=== PATIENT | male | born 1970 | race Caucasian/White ===

== ENCOUNTER → 2017-09-15 | Outpatient (CLI) | payer OTHER ==
--- NOTE | 2017-09-15 13:47 | DIAGNOSTIC IMAGING REPORT ---
TWO VIEW CHEST CLINICAL HISTORY: Exertional dyspnea. FINDINGS: PA and lateral chest radiographs are obtained. No prior studies are available for comparison at the time of dictation. The PA view is degraded by apical lordotic positioning. The cardiomediastinal silhouette is unremarkable. The lungs and pleural spaces are clear. There is no pneumothorax. The bony thorax appears intact. IMPRESSION: No active disease in the chest. Electronically signed by: Patricio Knight M.D. 09/15/2017 1:45 PM Dictated Date/Time: 09/15/2017 1:45 PM
== END | disposition home or self-care (01) ==
LOC: C.RAD1850 13:21
PROVIDERS: ATTEND Family Medicine
DX: R06.02 Shortness of breath (principal)

== ENCOUNTER 2020-08-21 21:45 | Observation (INO) ==
[2020-08-21 22:18] LABS: Basophils # (auto) 0.02 K/uL (0-0.2); Basophils % (auto) 0.3 %; Eosinophils # (auto) 0.15 K/uL (0-0.5); Eosinophils % (auto) 2.1 %; Hematocrit (blood only) 37.5 % (42-52); Hemoglobin 13.2 g/dL (14.0-18.0); Immature Granulocytes # (auto) 0.01 K/uL (0.00-0.02); Immature Granulocytes % (auto) 0.1 %; Lymphocytes # (auto) 2.52 K/uL (1.2-3.4); Mean Corpuscular Hemoglobin 30.5 pg (25-34); Mean Corpuscular Hgb Conc 35.2 g/dL (32-36); Mean Corpuscular Volume 86.6 fL (80-100); Mean Platelet Volume 9.6 fL (7.4-10.4); Monocytes # (auto) 0.66 K/uL (0.11-0.59); Monocytes % (auto) 9.2 %; Neutrophils # (auto) 3.83 K/uL (1.4-6.5); Neutrophils % (auto) 53.3 %; Platelet Count 415 K/uL (130-400); RDW Coefficient of Variation 12.5 % (11.5-14.5); Red Blood Count 4.33 M/uL (4.7-6.1); White Blood Count 7.19 K/uL (4.8-10.8)
--- NOTE | 2020-08-21 22:21 | Emergency Department Note ---
Impression & Plan TIA (transient ischemic attack) ED Provider Note NAME: CHOCO TORRES AGE: 49 SEX: M : 1970 ARRIVES VIA: Ambulance INFORMANT: Patient, prehospital personnel ED PROVIDER(S): Zay Corea DO CHIEF COMPLAINT: Neurologic symptoms HPI: The patient is a 49-year-old male who presented to the emergency department with a acute neurologic symptoms. The patient was on the phone with a family member when he started having left-sided weakness. He dropped the phone and was unable to communication electronic technician it. He was video conferencing with the family member and they noticed that he had left-sided facial droop as well as difficulty speaking. The symptoms lasted approximately 1/2-hour. The patient called 911 and presented to the emergency department for the symptoms. Prior to the patient coming to the emergency department symptoms completely resolved. He denies having any chest pain. He denies having any nausea or vomiting. He denies having any headache. The patient did have COVID-19 infection at the beginning of the month. He states he did have a cough and respiratory symptoms with this but no longer has any symptoms. His significant other does currently have symptoms for COVID-19. The patient himself denies having any lower extremity swelling. He denies having any fever. He denies having any neck stiffness. The patient feels that his symptoms are completely resolved. He has never had symptoms like this in the past. ROS: See above HPI for pertinent positives & negatives. A total of 10 systems reviewed and were otherwise negative. PAST MEDICAL HISTORY: See Below PAST SURGICAL HISTORY: See Below FAMILY HISTORY: See Below SOCIAL HISTORY: See Below HOME MEDICATIONS: See Below ALLERGIES: See Below VITALS: See Below PHYSICAL EXAMINATION: GENERAL: Patient is awake alert in no acute distress patient is resting comfortably and showing no signs of anxiety EYES: The conjunctivae are clear. The pupils are round and reactive. EARS, NOSE, MOUTH AND THROAT: The nose is without any evidence of any deformity. NECK: The neck is nontender and supple. RESPIRATORY: Normal respiratory effort is noted there is no evidence of wheezing rhonchi or rales CARDIOVASCULAR: Regular rate and rhythm noted there no murmurs rubs or gallops normal S1 normal S2. GASTROINTESTINAL: The abdomen is soft. Abdomen is nontender. MUSCULOSKELETAL/EXTREMITIES: There is no evidence of gross deformity full range of motion is noted in the hips and shoulders. SKIN: There is no obvious evidence of any rash. There are no petechiae, pallor or cyanosis noted. NEUROLOGIC: Patient is awake alert and oriented x3 strength is symmetric patellar reflexes are 2+ bilaterally MEDICAL DECISION MAKING: The patient is a 49-year-old male who presented to the emergency department for an evaluation of strokelike symptoms. The patient had an acute onset of left upper extremity weakness left facial droop and dysarthria. The patient's symptoms resolved prior to coming to the emergency department. The patient does not have any specific history of TIA or stroke in the past. He does have some nonspecific EKG abnormalities. The patient does not have any symptoms at this time. Given the significance of his TIA and his findings on CAT scan I do feel the patient may be a candidate for inpatient work-up and further evaluation for his strokelike symptoms. I discussed the patient's laboratory and radiographic studies with him. I also discussed the limitations of TIA work-up with the patient. I discussed this case with the on-call [facility]. They have agreed to evaluate the patient in the emergency department for further management and disposition. Triage Nursing notes reviewed. Prior medical records reviewed Vital Signs: reviewed and remarkable for no significant abnormalities Differential diagnosis: Infection, dehydration, metabolic abnormality, hypo/hyperglycemia, electrolyte disturbance, anemia, hypoxia, cardiac sources, intracerebral event, toxicologic, neurologic, as well as other pathologies. ER treatment provided: See below Diagnostics interpreted by me: ECG: EKG was obtained in the emergency department. My interpretation is normal sinus rhythm at 84 bpm. There is no ectopy. Diffuse ST segment abnormalities were noted. High lateral T wave versions were also noted. No previous tracing was available. Cardiac Monitoring: An order was placed for continuous cardiac monitoring. The monitor shows a rate of 85 bpm with sinus rhythm. Laboratory studies: As stated above and show below. Imaging studies: See below Consultation(s): I discussed this case with Dr. Akers who is on-call for the [facility] group. 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 Feels Safe at Home: Yes caffeine: Yes (coffee) Dental Care, Regularly: Yes Physical Activity Frequency: 3-4 Times per Week Seatbelt Use: sometimes Sunscreen Use: No Allergies Allergies Allergy/AdvReac Type Severity Reaction Status Date / Time No Known Allergies Allergy Verified 08/21/20 22:19 Home Meds Home Medications Medication Instructions Recorded Confirmed No Known Home Medications 11/29/19 08/21/20 Results & Data (ED) Vital Signs Vital Signs - 24 hr 08/21/20 21:55 08/21/20 22:17 08/21/20 23:12 Temperature 37.1 C Temperature Source Oral Pulse Rate 80 Pulse Rate [Right Finger] Pulse Rate from SpO2 Sensor Pulse Rhythm Regular Pulse Rhythm [Right Finger] Regular Pulse Strength Normal Pulse Strength [Right Finger] Normal Respiratory Rate 20 18 18 Respiratory Effort / Characteristics Non-Labored Non-Labored Non-Labored Spontaneous Accessory Muscle Use Respiratory Depth Normal Normal Normal Respiratory Pattern Regular Regular Regular Blood Pressure 122/82 Blood Pressure [Right Arm] 103/70 Blood Pressure Mean 95 Blood Pressure Mean [Right Arm] 81 Blood Pressure Position Sitting Blood Pressure Position [Right Arm] Lying Pulse Oximetry 97 98 96 Oxygen Delivery Method Room Air Room Air Room Air Sepsis Recent Fever Within 48 Hours No Sepsis New/Unexplained Change in Mental Status No Sepsis Action Taken by Nursing No Action Required 08/21/20 23:16 08/21/20 23:29 Temperature Temperature Source Pulse Rate 83 Pulse Rate [Right Finger] 84 Pulse Rate from SpO2 Sensor 83 Pulse Rhythm Pulse Rhythm [Right Finger] Regular Pulse Strength Pulse Strength [Right Finger] Normal Respiratory Rate 18 16 Respiratory Effort / Characteristics Non-Labored Spontaneous Accessory Muscle Use Respiratory Depth Normal Respiratory Pattern Regular Blood Pressure Blood Pressure [Right Arm] 132/62 Blood Pressure Mean Blood Pressure Mean [Right Arm] 85 Blood Pressure Position Blood Pressure Position [Right Arm] Pulse Oximetry 95 95 Oxygen Delivery Method Room Air Sepsis Recent Fever Within 48 Hours Sepsis New/Unexplained Change in Mental Status Sepsis Action Taken by Custodial Medications Current Medication List: was personally reviewed by me Laboratory Data Attestation: I reviewed the patient's lab results. Result diagrams: 08/21/20 22:10 08/21/20 22:10 Lab Results 08/21/20 08/21/20 08/21/20 Range/Units 22:10 22:10 22:10 WBC 7.19 (4.8-10.8) K/uL RBC 4.33 L (4.7-6.1) M/uL Hgb 13.2 L (14.0-18.0) g/dL Hct 37.5 L (42-52) % MCV 86.6 (80-100) fL MCH 30.5 (25-34) pg MCHC 35.2 (32-36) g/dL RDW Std Deviation 40.0 (36.4-46.3) fL RDW Coeff of Karen 12.5 (11.5-14.5) % Plt Count 415 H (130-400) K/uL MPV 9.6 (7.4-10.4) fL Immature Gran % (Auto) 0.1 % Neut % (Auto) 53.3 % Lymph % (Auto) 35.0 % Woodson % (Auto) 9.2 % Eos % (Auto) 2.1 % Baso % (Auto) 0.3 % Neut # (Auto) 3.83 (1.4-6.5) K/uL Lymph # (Auto) 2.52 (1.2-3.4) K/uL Woodson # (Auto) 0.66 H (0.11-0.59) K/uL Eos # (Auto) 0.15 (0-0.5) K/uL Baso # (Auto) 0.02 (0-0.2) K/uL Immature Gran # (Auto) 0.01 (0.00-0.02) K/uL PT 10.6 (9.0-12.0) Seconds INR 1.0 (0.9-1.1) APTT 25.9 (21.0-31.0) Seconds PTT Ratio 1.0 Sodium 143 (136-145) mmol/L Potassium 3.5 (3.5-5.1) mmol/L Chloride 113 H (98-107) mmol/L Carbon Dioxide 22 (21-32) mmol/L Anion Gap 8.0 (3-11) BUN 23 H (7-18) mg/dl Creatinine 1.06 (0.6-1.4) mg/dl Est Cr Clr Drug Dosing 90.9 ml/min Est GFR ( Amer) 94.4 Est GFR (Non-Af Amer) 81.4 BUN/Creatinine Ratio 21.7 H (10-20) Glucose 105 H (70-99) mg/dl Calcium 8.8 (8.5-10.1) mg/dl Magnesium 2.1 (1.8-2.4) mg/dl Total Bilirubin 0.4 (0.2-1) mg/dl AST 13 L (15-37) U/L ALT 28 (12-78) U/L Alkaline Phosphatase 88 (45-117) U/L Troponin I < 0.015 (0-0.045) ng/ml Total Protein 7.1 (6.4-8.2) gm/dl Albumin 3.7 (3.4-5.0) gm/dl Globulin 3.4 (2.5-4.0) gm/dl Albumin/Globulin Ratio 1.1 (0.9-2) Administered Medications Discontinued Medications Ioversol (Optiray 350 500ml) 120 ml IV ONCE ONE Stop: 08/21/20 23:04 Last Admin: 08/21/20 23:04 Dose: 120 ml Documented by: [id number] Imaging Data Attestation: I personally reviewed and interpreted this imaging study as follows: My Impression: Chest x-ray was obtained in the emergency department. My interpretation is heart size is normal, there is no infiltrate, there is no free air, mediastinum is normal in contour. No acute disease. Radiologist's Impression: Patient: CHOCO TORRES (Male) : 68 Status: ER Date: 08/21/20 23:13 Room #: History: left sided weakness, rule out stroke Slices: 607 Priors: Tech: Kandy Judd @ [phone] Exams: CTA NECK Contrast: IV Amt: 120ml of optiray 350 Accession Numbers: [id number] Preliminary Findings Only See Final Report For Complete Findings CTA NECK: Negative. No evidence of stenosis, occlusion or dissection. Radiologist: Murray Smith MD Study ready at 23:19 and initial results transmitted at 23:44 Patient: CHOCO TORRES (Male) : 68 Status: ER Date: 08/21/20 23:12 Room #: History: left sided weakness, rule out stroke Slices: 445 Priors: Tech: Kandy Judd @ [phone] Exams: CTA HEAD Contrast: IV Amt: 120ml of optiray 350 Accession Numbers: [id number] Preliminary Findings Only See Final Report For Complete Findings CTA HEAD: Negative. No evidence of significant stenosis, aneurysm or major intracranial branch occlusion. Radiologist: Murray Smith MD Study ready at 23:19 and initial results transmitted at 23:42 Patient: CHOCO TORRES (Male) : [birth year] Status: ER Date: 08/21/20 23:09 Room #: History: left sided weakness, rule out stroke Slices: 67 Priors: Tech: Kandy Judd @ [phone] Exams: CT HEAD Contrast: Accession Numbers: [id number] Preliminary Findings Only See Final Report For Complete Findings CT HEAD: No acute intercranial abnormalities. No hemorrhage, acute edema or abnormal mass-effect. 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 Radiologist: Murray Smith MD Study ready at 23:12 and initial results transmitted at 23:38 Discharge Plan Visit Data Stated Complaint: L. SIDE WEAKNESS ED Provider: Zay Corea Discharge Problem: TIA (transient ischemic attack) Patient Disposition: Being Evaluated by Hospitalist Condition: Good Prescriptions Prescriptions: No Action No Known Home Medications RF: 0 Referrals Referrals: Geno Jones CRNP [Primary Care Provider] -
[2020-08-21 22:30] LABS: Partial Thromboplastin Time 25.9 Seconds (21.0-31.0); Prothrombin Time 10.6 Seconds (9.0-12.0)
[2020-08-21 22:36] LABS: Alanine Aminotransferase 28 U/L (12-78); Albumin Level 3.7 gm/dl (3.4-5.0); Aspartate Aminotransferase 13 U/L (15-37); BUN Creatinine Ratio 21.7 (10-20); Blood Urea Nitrogen 23 mg/dl (7-18); Calcium 8.8 mg/dl (8.5-10.1); Carbon Dioxide 22 mmol/L (21-32); Chloride 113 mmol/L (98-107); Creatinine Clr Calc Pharmacy 90.9 ml/min; Est GFR (African American) 94.4; Est GFR (Non-African American) 81.4; Glucose 105 mg/dl (70-99); Magnesium 2.1 mg/dl (1.8-2.4); Potassium 3.5 mmol/L (3.5-5.1); Sodium 143 mmol/L (136-145)
[2020-08-21 22:41] LABS: Albumin Globulin Ratio 1.1 (0.9-2); Alkaline Phosphatase 88 U/L (45-117); Bilirubin,Total 0.4 mg/dl (0.2-1); Globulin 3.4 gm/dl (2.5-4.0); Total Protein 7.1 gm/dl (6.4-8.2); Troponin I < 0.015 ng/ml (0-0.045)
[2020-08-21] MEDS ORDERED: OPTIRAY 350 500ml IV ONE (23:03)
[2020-08-22 01:13] LABS: Influenza A virus by PCR Negative (Neg); Influenza B virus by PCR Negative (Neg); RSV by PCR Negative (Neg)
[2020-08-22 01:19] LABS: SARS CoV2 RNA(COVID-19) InHosp POSITIVE (Negative)
--- NOTE | 2020-08-22 02:28 | History & Physical Report ---
Date of Service August 22, 2020 Assessment & Plan (1) TIA (transient ischemic attack): Patient was noted to have transient symptoms of left facial droop, left upper extremity weakness, and slurred speech, with symptoms resolved by the time of arrival in the emergency department. 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 Patient unaware of any visual field symptoms, and has no previous knowledge of this stroke Present on Admission?: Yes (3) COVID-19: Patient is COVID-19 positive in the emergency department. He reports complete resolution of his respiratory symptoms began earlier in the month. He reports that his 2-week quarantine interval ended last week. The patient does not require active treatment for COVID-19, but will be placed in a respiratory isolation room Present on Admission?: Yes History of Present Illness Chief Complaint: The patient presents to the emergency department with complaint of transient left face and left upper extremity weakness, and slurred speech, that took place during a video conference with his daughter who was at [facility] Primary Care Provider: JUAN Sin The patient is a 49-year-old male with a past medical history including somatic dysfunction of lumbar, thoracic, pelvis and cervical regions, muscle spasm and low back pain who presents to the emergency department with the resolved symptoms that were noted above. He denies any previous occurrence of the symptoms. He denies any recent change in activity pattern or eating or drinking patterns. He was found to be COVID-19 positive earlier in the month, and reports it is quarantine interval was over last week. He did have mild cough and respiratory symptoms with his COVID-19 infection, but has no longer had any symptoms for at least the past week. The patient did test positive for COVID-19 infection in the ED tonight. Allergies Allergy/AdvReac Type Severity Reaction Status Date / Time No Known Allergies Allergy Verified 08/21/20 22:19 Home Medications Medication Instructions Recorded Confirmed Type No Known Home Medications 11/29/19 08/21/20 History Past Med/Surg History Medical History Muscle spasm Somatic dysfunction of cervical region Somatic dysfunction of lumbar region Somatic dysfunction of pelvis region Somatic dysfunction of thoracic region Surgical History S/P surgery on nasal septum Family History Denies family history of Ovarian cancer Prostate cancer Diabetes Myocardial infarction Breast cancer Colorectal cancer Hypertension Social History Smoking Status: Never smoker Second Hand Exposure: No; Hx Alcohol Use: No Hx Substance Use: No marital status: Current Living Situation: Spouse current occupational status: employed 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 Feels Safe at Home: Yes caffeine: Yes (coffee) Dental Care, Regularly: Yes Physical Activity Frequency: 3-4 Times per Week Seatbelt Use: sometimes Sunscreen Use: No Review of Systems Review of Systems: The patient denies chest pain, palpitations, shortness of breath, dyspnea on exertion, cough, lower extremity swelling, sore throat, fevers, chills, sweats, nausea, vomiting, diarrhea , constipation, abdominal pain, pelvic pain, blood in urine or stool, dysuria, urinary frequency or urgency, lightheadedness, dizziness, headache, memory loss, loss of consciousness, rash, abnormal bruising or bleeding, generalized arthralgias or myalgias, back or neck pain, or night sweats. The review of systems is otherwise negative other than for that already noted above, and at least 10 systems have been reviewed. Physical Exam Physical Exam: The patient is awake, alert and oriented 3, well developed and well nourished, normocephalic and atraumatic, lying in bed and in no acute distress. HEENT--PERRL, EOMI, mucous membranes and oropharynx normal. Neck--supple. No JVD. No bruits. Thyroid normal, trachea midline, no adenopathy. Heart--normal S1 and S2. No murmurs, rubs or gallops. Lungs--clear bilaterally, no respiratory distress, no accessory muscle use. Abdomen--normal bowel sounds and soft. Nontender. Nondistended, no hernias or masses, no organomegaly. Extremities--no cyanosis or clubbing. No edema. Dermatologic--normal skin turgor, normal color, no abnormal lymph nodes, no rash. Neurologic--cranial nerves II through XII grossly intact. Rheumatologic--normal range of motion. Psychiatric--normal affect. Results & Data Results & Data ([facility]) Vital Signs (Past 12 Hours) Vital Signs Temp Pulse Pulse Resp BP BP Pulse Ox 08/22/20 00:01 84 21 122/66 95 08/22/20 00:00 76 19 96 08/21/20 23:46 72 19 95 08/21/20 23:45 70 18 136/81 97 08/21/20 23:30 76 21 133/73 94 08/21/20 23:29 84 16 132/62 95 08/21/20 23:28 79 22 132/62 94 08/21/20 23:16 83 18 95 08/21/20 23:12 18 103/70 96 08/21/20 22:17 18 98 08/21/20 21:55 98.8 F 80 20 122/82 97 Laboratory Results Laboratory Results WBC 7.19 K/uL (4.8-10.8) 08/21/20 22:10 RBC 4.33 M/uL (4.7-6.1) L 08/21/20 22:10 Hgb 13.2 g/dL (14.0-18.0) L 08/21/20 22:10 Hct 37.5 % (42-52) L 08/21/20 22:10 MCV 86.6 fL (80-100) 08/21/20 22:10 MCH 30.5 pg (25-34) 08/21/20 22:10 MCHC 35.2 g/dL (32-36) 08/21/20 22:10 RDW Std Deviation 40.0 fL (36.4-46.3) 08/21/20 22:10 RDW Coeff of Karen 12.5 % (11.5-14.5) 08/21/20 22:10 Plt Count 415 K/uL (130-400) H 08/21/20 22:10 MPV 9.6 fL (7.4-10.4) 08/21/20 22:10 Immature Gran % (Auto) 0.1 % 08/21/20 22:10 Neut % (Auto) 53.3 % 08/21/20 22:10 Lymph % (Auto) 35.0 % 08/21/20 22:10 Otoe % (Auto) 9.2 % 08/21/20 22:10 Eos % (Auto) 2.1 % 08/21/20 22:10 Baso % (Auto) 0.3 % 08/21/20 22:10 Neut # (Auto) 3.83 K/uL (1.4-6.5) 08/21/20 22:10 Lymph # (Auto) 2.52 K/uL (1.2-3.4) 08/21/20 22:10 Otoe # (Auto) 0.66 K/uL (0.11-0.59) H 08/21/20 22:10 Eos # (Auto) 0.15 K/uL (0-0.5) 08/21/20 22:10 Baso # (Auto) 0.02 K/uL (0-0.2) 08/21/20 22:10 Immature Gran # (Auto) 0.01 K/uL (0.00-0.02) 08/21/20 22:10 PT 10.6 Seconds (9.0-12.0) 08/21/20 22:10 INR 1.0 (0.9-1.1) 08/21/20 22:10 APTT 25.9 Seconds (21.0-31.0) 08/21/20 22:10 PTT Ratio 1.0 08/21/20 22:10 Sodium 143 mmol/L (136-145) 08/21/20 22:10 Potassium 3.5 mmol/L (3.5-5.1) 08/21/20 22:10 Chloride 113 mmol/L (98-107) H 08/21/20 22:10 Carbon Dioxide 22 mmol/L (21-32) 08/21/20 22:10 Anion Gap 8.0 (3-11) 08/21/20 22:10 BUN 23 mg/dl (7-18) H 08/21/20 22:10 Creatinine 1.06 mg/dl (0.6-1.4) 08/21/20 22:10 Est Cr Clr Drug Dosing 90.9 ml/min 08/21/20 22:10 Est GFR ( Amer) 94.4 08/21/20 22:10 Est GFR (Non-Af Amer) 81.4 08/21/20 22:10 BUN/Creatinine Ratio 21.7 (10-20) H 08/21/20 22:10 Glucose 105 mg/dl (70-99) H 08/21/20 22:10 Calcium 8.8 mg/dl (8.5-10.1) 08/21/20 22:10 Magnesium 2.1 mg/dl (1.8-2.4) 08/21/20 22:10 Total Bilirubin 0.4 mg/dl (0.2-1) 08/21/20 22:10 AST 13 U/L (15-37) L 08/21/20 22:10 ALT 28 U/L (12-78) 08/21/20 22:10 Alkaline Phosphatase 88 U/L (45-117) 08/21/20 22:10 Troponin I < 0.015 ng/ml (0-0.045) 08/21/20 22:10 Total Protein 7.1 gm/dl (6.4-8.2) 08/21/20 22:10 Albumin 3.7 gm/dl (3.4-5.0) 08/21/20 22:10 Globulin 3.4 gm/dl (2.5-4.0) 08/21/20 22:10 Albumin/Globulin Ratio 1.1 (0.9-2) 08/21/20 22:10 COVID-19 Eval Order [facility] at [facility] 08/22/20 00:30 SARS-CoV-2 (PCR) POSITIVE (Negative) A* 08/22/20 00:30 Influenza Type A (PCR) Negative (Neg) 08/22/20 00:30 Influenza Type B (PCR) Negative (Neg) 08/22/20 00:30 RSV (RT-PCR) Negative (Neg) 08/22/20 00:[address] [facility] Patient: CHOCO TORRES (Male) : 68 Status: ER Date: 08/21/20 23:09 Room #: History: left sided weakness, rule out stroke Slices: 67 Priors: Tech: Kandy Judd @ [phone] Exams: CT HEAD Contrast: Accession Numbers: [id number] Preliminary Findings Only See Final Report For Complete Findings CT HEAD: No acute intercranial abnormalities. No hemorrhage, acute edema or abnormal mass-effect. 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 Radiologist: Murray Smith MD Study ready at 23:12 and initial results transmitted at 23:38 *This report constitutes a preliminary interpretation only. Non-acute findings felt to be unrelated to the clinical presentation may not be discussed in this r eport. The study will be interpreted and a final report will be generated by the local Radiologist the following shift. To reach the hospital radiology department call [phone]. If a discrepancy is found between the preliminary and final interpretations of this study, please notify us via our Client Portal at [email or web address].You can also fax this report with a description of the discrepancy, or include the final report, to our daytime fax number [phone].If faxing, please indicate the severity of discrepancy using one of the following categories: [ ] 1 - Agree/Informational [ ] 2 - Unlikely to Affect Management [ ] 3 - Possible Eventual Change of Management [ ] 4 - Probable Immediate Change of Management For all other patient related information, please fax us at [phone]. [id number] [facility] Patient: CHOCO TORRES (Male) : 68 Status: ER Date: 08/21/20 23:12 Room #: History: left sided weakness, rule out stroke Slices: 445 Priors: Tech: Kandy Judd @ [phone] Exams: CTA HEAD Contrast: IV Amt: 120ml of optiray 350 Accession Numbers: [id number] Preliminary Findings Only See Final Report For Complete Findings CTA HEAD: Negative. No evidence of significant stenosis, aneurysm or major intracranial branch occlusion. Radiologist: Murray Smith MD Study ready at 23:19 and initial results transmitted at 23:42 *This report constitutes a preliminary interpretation only. Non-acute findings felt to be unrelated to the clinical presentation may not be discussed in this report. The study will be interpreted and a final report will be generated by the local Radiologist the following shift. To reach the hospital radiology department call [phone]. If a discrepancy is found between the preliminary and final interpretations of this study, please notify us via our Client Portal at [email or web address] can also fax this report with a description of the discrepancy, or include the final report, to our daytime fax number [phone].If faxing, please indicate the severity of discrepancy using one of the following categories: [ ] 1 - Agree/Informational [ ] 2 - Unlikely to Affect Management [ ] 3 - Possible Eventual Change of Management [ ] 4 - Probable Immediate Change of Management For all other patient related information, please fax us at [phone]. [id number] [facility] Patient: CHOCO TORRES (Male) : 68 Status: ER Date: 08/21/20 23:13 Room #: History: left sided weakness, rule out stroke Slices: 607 Priors: Tech: Dutch Kandy @ [phone] Exams: CTA NECK Contrast: IV Amt: 120ml of optiray 350 Accession Numbers: [id number] Preliminary Findings Only See Final Report For Complete Findings CTA NECK: Negative. No evidence of stenosis, occlusion or dissection. Radiologist: Murray Smith MD Study ready at 23:19 and initial results transmitted at 23:44 *This report constitutes a preliminary interpretation only. Non-acute findings felt to be unrelated to the clinical presentation may not be discussed in this report. The study will be interpreted and a final report will be generated by the local Radiologist the following shift. To reach the hospital radiology department call [phone]. If a discrepancy is found between the preliminary and final interpretations of this study, please notify us via our Client Portal at [email or web address] [email or web address].You can also fax this report with a description of the discrepancy, or include the final report, to our daytime fax number [phone].If faxing, please indicate the severity of discrepancy using one of the following categories: [ ] 1 - Agree/Informational [ ] 2 - Unlikely to Affect Management [ ] 3 - Possible Eventual Change of Management [ ] 4 - Probable Immediate Change of Management For all other patient related information, please fax us at [phone]. [id number] Code Status & VTE Plan Code Status Full code VTE Prophylaxis Plan VTE Prophylaxis will be ordered: Yes PG Care Time/CCT Total # of Minutes Spent Total Time Spent with Patient: Total time spent is greater than 50% in coordination of care (as documented) at patient's floor/unit and/or counseling patient: Coding Level of Care Code 08824 OBS Care - Level 3 Diagnoses TIA (transient ischemic attack) G45.9 Occipital cortex infarction I63.9 COVID-19 U07.1
[2020-08-22] MEDS ORDERED: PHARMACIST DISCHARGE MED REC CONSULT PRN (04:29)
[2020-08-22] MEDS ORDERED: ACETAMINOPHEN 325 MG TAB PO PRN (04:29)
[2020-08-22] MEDS ORDERED: ONDANSETRON INJ 2 MG/ML 2 ML VIAL IV PRN (04:29)
[2020-08-22] MEDS ORDERED: NSS + 20MEQ KCL 20 MEQ/1,000 ML BAG IV SCH (04:29)
--- NOTE | 2020-08-22 06:46 | CT Scan Report ---
CT OF THE HEAD WITHOUT CONTRAST CLINICAL HISTORY: Stroke Like Symptoms. Left-sided weakness. COMPARISON STUDY: No previous studies for comparison. TECHNIQUE: Helical axial images of the head were obtained without IV contrast. Automated exposure con trol was utilized for the study. A dose lowering technique was utilized adhering to the principles o f ALARA. FINDINGS: No acute intracranial hemorrhage, midline shift or mass effect is present. The ventricular system is unremarkable. The basal cisterns are patent. No extra-axial collections are present. There are no findings to suggest acute dural sinus thrombosis or acute territorial infarct. No significant calvarial abnormalities are present. Postoperative findings within the sinuses are noted. Left fronta l sinus is opacified. There is polypoid mucosal thickening within the ethmoid and maxillary sinuses. An old infarct within the left occipital lobe is noted. There is a suspected zo cisterna magna appe ar IMPRESSION: No acute intracranial findings. ACT 112: Negative or not required by law. Electronically signed by: Kiran Murcia M.D. 08/22/2020 6:45 AM
--- NOTE | 2020-08-22 06:56 | XRay Report ---
XR chest 1V portable CLINICAL HISTORY: Stroke Like Symptoms COMPARISON STUDY: 09/15/2017 FINDINGS: The cardiac and mediastinal contours are normal. There is no evidence of focal pulmonary co nsolidation. There is no evidence of failure. No pleural effusions are visualized.[ IMPRESSION: No active disease in the chest. ACT 112: Negative or not required by law. Electronically signed by: Tomasz Mesa M.D. 08/22/2020 6:54 AM
--- NOTE | 2020-08-22 06:58 | CT Scan Report ---
CT ANGIOGRAPHY OF THE NECK WITH CONTRAST CLINICAL HISTORY: Stroke Like Symptoms COMPARISON STUDY: No previous studies for comparison. Technique: CT angiography of the carotid and vertebral arteries was obtained using Optiray and 3D rec onstruction on an independent workstation. NASCET criteria was utilized. Automated exposure control was utilized for the study. A dose lowering technique was utilized adhering to the principles of ALA RA. Findings: Incidental note is made of mild airspace opacities within visualized portions of the upper lungs, right greater than left. There is no cervical lymphadenopathy. The epiglottis is normal. There is no acute cervical spine fracture. The bilateral common carotid, cervical internal carotid and yelitza tebral arteries are patent. No stenosis within these vessels is noted. There is no dissection. The le ft vertebral artery is dominant. The right vertebral artery is diminutive. IMPRESSION: 1. No stenosis or dissection within the major vessels of the neck. 2. Mild airspace opacities within the lung apices. ACT 112: Negative or not required by law. Electronically signed by: Kiran Murcia M.D. 08/22/2020 6:57 AM
--- NOTE | 2020-08-22 07:09 | CT Scan Report ---
CT angio head w con CLINICAL HISTORY: Stroke Like Symptoms TECHNIQUE: CT angiography of the head was performed in a dynamic helical fashion during intravenous a dministration of 120 cc of Optiray. MIP imaging was performed. A dose lowering technique was utilized adhering to the principles of ALARA. CT DOSE: 1201.41 mGy.cm COMPARISON STUDY: No previous studies for comparison. FINDINGS: There are no lesion suspicious for aneurysm. There are no major intracranial branch occlusi ons. The dural venous sinuses appear patent. There is paranasal sinus mucosal thickening. IMPRESSION: 1. Unremarkable CT angiography of the brain. ACT 112: Negative or not required by law. Electronically signed by: Tomasz Mesa M.D. 08/22/2020 7:08 AM
--- NOTE | 2020-08-22 08:15 | Magnetic Resonance Report ---
MRI OF THE BRAIN WITHOUT CONTRAST CLINICAL HISTORY: resolved L arm weakness, old L occipital lobe infarct COMPARISON STUDY: Head CT and CTA of the head August 21, 2020. TECHNIQUE: Utilizing a 1.5 Rosario magnet and dedicated coil, multiplanar, multiecho imaging of the bra in was performed without IV contrast. FINDINGS: There is a subtle small focus of restricted diffusion within the posterior right frontal lo be shown on axial image 17 of 23. This measures 5 mm. This is located within the precentral gyrus. Th is is hypointense on the ADC sequence. No significant associated parenchymal signal abnormality is id entified. No additional foci of restricted diffusion are present. Ventricular system is unremarkable. Basal cisterns are patent. There are no extra-axial collections. Incidental note is made of a zo c isterna magna. There is an old small left occipital lobe infarct. Postoperative findings within the s inuses are noted. The left frontal sinus is opacified. There is mild polypoid mucosal thickening of t he maxillary sinuses and moderate polypoid mucosal thickening of the ethmoid sinuses. Calvarial signa l is normal. Orbits are unremarkable on this unenhanced examination. There is no mastoid fluid. Flow- voids for the major intracranial vessels are present. IMPRESSION: 1. Subtle small 5 mm acute infarct within the precentral gyrus of the right frontal lobe which would account for the patient's symptoms. No mass effect. No hemorrhage. 2. Small left occipital lobe infarct. 3. Paranasal sinus disease, as above. ACT 112: Negative or not required by law. Electronically signed by: Kiran Murcia M.D. 08/22/2020 8:13 AM
[2020-08-22 09:00] LABS: Basophils # (auto) 0.01 K/uL (0-0.2); Basophils % (auto) 0.1 %; Eosinophils # (auto) 0.12 K/uL (0-0.5); Eosinophils % (auto) 1.5 %; Hematocrit (blood only) 41.7 % (42-52); Hemoglobin 14.7 g/dL (14.0-18.0); Immature Granulocytes # (auto) 0.01 K/uL (0.00-0.02); Immature Granulocytes % (auto) 0.1 %; Lymphocytes % (auto) 23.9 %; Mean Corpuscular Hemoglobin 30.6 pg (25-34); Mean Corpuscular Hgb Conc 35.3 g/dL (32-36); Mean Corpuscular Volume 86.9 fL (80-100); Mean Platelet Volume 10.1 fL (7.4-10.4); Monocytes % (auto) 7.5 %; Neutrophils # (auto) 5.32 K/uL (1.4-6.5); Neutrophils % (auto) 66.9 %; Platelet Count 484 K/uL (130-400); RDW Coefficient of Variation 12.8 % (11.5-14.5); RDW Standard Deviation 41.5 fL (36.4-46.3); White Blood Count 7.96 K/uL (4.8-10.8)
[2020-08-22] MEDS ORDERED: ATORVASTATIN 40 MG TAB PO SCH ×2 (09:00)
[2020-08-22] MEDS ORDERED: HEPARIN SOD 5,000 UNIT/0.5 ML VIAL SQ SCH (09:00)
[2020-08-22] MEDS ORDERED: ASPIRIN 81 MG ECTAB PO SCH (09:00)
[2020-08-22 09:16] LABS: BUN Creatinine Ratio 23.1 (10-20); Blood Urea Nitrogen 22 mg/dl (7-18); Calcium 9.5 mg/dl (8.5-10.1); Carbon Dioxide 24 mmol/L (21-32); Chloride 109 mmol/L (98-107); Cholesterol 210 mg/dl (0-200); Creatinine Clr Calc Pharmacy 101.4 ml/min; Est GFR (African American) 107.7; Glucose 124 mg/dl (70-99); Potassium 4.1 mmol/L (3.5-5.1); Sodium 139 mmol/L (136-145)
[2020-08-22 09:19] LABS: Chol HDL Ratio 4; HDL Cholesterol 59 mg/dl; LDL Cholesterol Calculated 138 mg/dl; Triglycerides 67 mg/dl (0-150); Troponin I < 0.015 ng/ml (0-0.045); VLDL Cholesterol 13 mg/dl
[2020-08-22 10:02] LABS: Estimated Average Glucose 117 mg/dl; Hemoglobin A1C 5.7 % (4.5-5.6)
--- NOTE | 2020-08-22 12:33 | Electrocardiogram Report ---
Test Reason : Blood Pressure : / mmHG Vent. Rate : 084 BPM Atrial Rate : 084 BPM P-R Int : 166 ms QRS Dur : 092 ms QT Int : 494 ms P-R-T Axes : 046 011 070 degrees QTc Int : 583 ms Normal sinus rhythm Nonspecific T wave abnormality Prolonged QT Abnormal ECG No previous ECGs available Confirmed by Zay Chavez ([id number]) on 08/22/2020 12:33:06 PM Referred By: REFERRED SELF Confirmed By:Zay Chavez
--- NOTE | 2020-08-22 15:09 | Neurology Consultation ---
Date of Consultation August 22, 2020 Assessment & Plan (1) COVID-19: (2) Stroke: Andres Nogueira is a 49 yo man w/ PMH of MSK pain syndrome who p/t [facility] on 08/21/20 with acute onset of left sided weakness. Symptom localization: right frontal lobe Stroke mechanism: cardioembolic vs hypercoagulable in the setting of recent COVID vs lacunar given small size Stroke WorkUp: - CT head: shows no hemorrhage or hypodensity, incidental cerebellar arachnoid cyst is noted - CTA head/neck: shows no LVO, high grade stenosis or aneurysm; hypoplastic right vertebral artery. 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 visible device) as outpatient if telemetry here unrevealing - Vitals, Neurochecks, NIHSS per unit routine - BP parameters: SBP CAP 220, hold home anti-hypertensives for permissive HTN - Complete ischemic stroke workup with TTE without bubble, UDS, LAC panel - Consult speech, PT, OT for supportive management - Will career placement services counselor concerning stroke education, smoking cessation, healthy diet, physical activity, weight loss - Follow up with PCP for assistance with outpatient goals (BP <130/80, LDL <70, A1c <7) - Follow up in neurology clinic in 6-8 weeks with [facility] Secondary Stroke Prevention: - Antiplatelet: ASA 81mg po daily (unless DVT noted on LE Dopplers) - Anticoagulation: Not indicated at this time - Statin: Atorvastatin 80mg daily HTN: - BP parameters, as above FEN/GI: - Diet: Cardiac HH diet and PO meds given absence of bulbar signs or symptoms - Monitor lytes and replete PRN Glucose Control: - Sliding scale insulin and accuchecks per primary team to avoid hyperglycemia Thank you for this interesting consult. Plan of care was discussed with primary team. Please call with any questions. History of Present Illness Attending Physician: Vincent Coronado DO History of Present Illness Andres Nogueira is a 49 yo man w/ PMH of MSK pain syndrome who p/t [facility] on 08/21/20 with acute onset of left sided weakness. HOT BRAIDER ~ 8pm on 08/21/20. In the ED, He was afebrile, BP 122/82, heart rate 80, respiratory 20, satting 97% on room air.Labs notable for WBC 7.9, hemoglobin 13.2 with MCV 86.6, platelets elevated 415, BMP within normal except for mildly elevated BUN 23, creatinine 1.06, glucose 105,INR 1, LFTs within normal, troponin negative, Covid positive. Imaging independently reviewed. CT head shows no hemorrhage or hypodensity, incidental cerebellar arachnoid cyst is noted. CTA H&N shows no LVO, high grade stenosis or aneurysm; hypoplastic right vertebral artery. MRI brain shows punctuate acute stroke in the posterior right frontal lobe with mild SVID, chronic occipital lobe stroke, and cerebellar arachnoid cyst as noted in CTH. On examination, he reports that he was in his normal state of health until about 8-8:15pm when he was face-timing/holding his phone with his left hand when his hand became acutely numb and "rubbery" feeling. Family also reported a left facial droop. Family called EMS right away. He notes that symptoms resolved within the 15-30 minutes before EMS arrived. He does note that his BP was very high during the symptoms but resolved by presentation to the ED. Has never had anything like this in the past. Does not take AP/AC at home (or any medications). Had COVID about 2 weeks; still positive in the ED last night. 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 Allergies Allergy/AdvReac Type Severity Reaction Status Date / Time No Known Allergies Allergy Verified 08/21/20 22:19 Home Medications Medication Instructions Recorded Confirmed Type No Known Home Medications 11/29/19 08/21/20 History atorvastatin 80 mg PO QAM 30 Days #30 tab 08/22/20 Rx Patient History Medical History COVID-19 Muscle spasm Somatic dysfunction of cervical region Somatic dysfunction of lumbar region Somatic dysfunction of pelvis region Somatic dysfunction of thoracic region Surgical History S/P surgery on nasal septum Family History Denies family history of Ovarian cancer Prostate cancer Diabetes Myocardial infarction Breast cancer Colorectal cancer Hypertension Social History Smoking Status: Current every day smoker Second Hand Exposure: No; Hx Alcohol Use: No Hx Substance Use: No Preferred Language: Divehi Communication Ability: Effective Home Improvement Advisor Required: No Beliefs That Will Affect Care: None marital status: Current Living Situation: Spouse current occupational status: employed 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 Exam (Neuro) Physical Exam: General Exam: GEN: NAD, sitting down in examination bed. HEENT: No conjunctival injection, no rhinorrhea. CV: RRR on monitor, no significant edema. PULM: Nonlabored respirations on room air. Neuro Exam: MS: Awake and Alert. Oriented to person, place, and date. Speech fluent and appropriate without dysarthria or paraphasic errors. Language intact including naming, comprehension, repetition. Cognition and memory grossly intact. Attention intact. No neglect. (remainder of exam per primary team due to COVID positive status) CN: Visual ghotra full, + blink to threat bilaterally. No extinction to double simultaneous stimuli. Unable to visualize fundi on fundoscopic exam. PERRLA OU. EOMI without nystagmus. Facial sensation intact to LT. Facial muscles full and symmetric. Hearing intact to conversation. Shoulder shrug normal. Tongue midline. MOTOR: Normal bulk and tone. No pronator drift. BUE strength 5/5 at deltoids, biceps, triceps, wrist flexors and extensors, and finger flexors bilaterally. BLE strength 5/5 at iliopsoas, hamstrings, quadriceps, tibialis anterior, and gastrocnemius bilaterally. REFLEXES: 1+ at biceps, triceps, brachioradialis, patella, and Achilles bilaterally. Flexor plantar responses bilaterally. SENSORY: Intact to LT throughout, no extinction to double simultaneous stimuli. COORDINATION: No dysmetria or ataxia on [id number] bilaterally. Normal Lui bilaterally. GAIT: Deferred due to physical status. NIH STROKE SCALE 1A. Level of Consciousness (0-3) = 0 1B. LOC Questions (0-2) = 0 1C. LOC Commands (0-2) = 0 2. Best Horizontal Gaze (0-2) = 0 3. Visual Ghotra (0-3) = 0 4. Facial Palsy (0-3) = 0 5. Motor Arm Right (0-4) = 0 Left (0-4) = 0 6. Motor Leg Right (0-4) = 0 Left (0-4) = 0 7. Limb Ataxia (0-2) = 0 8. Sensory (0-2) = 0 9. Best Language (0-3) = 0 10. Dysarthria (0-2) = 0 11. Extinction and Inattention (0-2) = 0 NIHSS TOTAL = 0 Results & Data ([facility]) Vital Signs (Past 12 Hours) Vital Signs Temp Pulse Pulse Resp BP Pulse Ox 08/22/20 11:07 36.7 C 76 18 121/77 97 08/22/20 08:00 61 08/22/20 07:33 36.6 C 66 18 116/73 98 08/22/20 06:04 67 08/22/20 04:46 36.7 C 70 18 153/84 H 97 PG Care Time/CCT Total # of Minutes Spent Total Time Spent with Patient: Total time spent is greater than 50% in coordination of care (as documented) at patient's floor/unit and/or counseling patient: 60 Coding Level of Care Code 17469 Inpt Consult Level 5 Diagnoses COVID-19 U07.1 Stroke I63.9
--- NOTE | 2020-08-22 16:10 | XCELERA ---
[id number]
[2020-08-22] MEDS ORDERED: STROKE PATIENT DISCHARGE STA (16:36)
--- NOTE | 2020-08-22 16:54 | Pharmacy Report ---
Pharmacist Stroke Counseling - Date of Service August 22, 2020 - Scope: Pharmacy has been consulted to provide medication discharge counseling for this patient admitted with transient ischemic attack as per the Pharmacist Discharge Counseling for Stroke Patients Protocol. - Medications on Discharge: Home Medications Medication Instructions Recorded Confirmed No Known Home Medications 11/29/19 08/21/20 New Rx's Medication Instructions Recorded atorvastatin 80 mg PO QAM 30 Days #30 tab 08/22/20 - Action: The above medications, specifically ones for stroke treatment/prophylaxis, have been reviewed in detail with the patient and/or patient herbicide service sales representative(s) prior to discharge. This includes indication, common adverse reactions, drug interactions, and medication administration. Medication counseling has been employed using the teach-back method to ensure understanding. - Outcome: The patient and/or patient herbicide service sales representative(s) have demonstrated understanding of the medications. Additional comments: * Spoke with patient via telephone prior to discharge * He was not taking any medications prior to admission * Reviewed potential adverse effects of aspirin and atorvastatin. He will monitor and report any problems. He denies any baseline pain issues. Unsure if aspirin will be covered by his insurance, but he can just purchase over-th e-counter Thank you for allowing pharmacy to be involved in the care of this patient. Please call [phone] with any additional questions
--- NOTE | 2020-08-22 17:42 | Ultrasound Report ---
BILATERAL LOWER EXTREMITY VENOUS DOPPLER HISTORY: stroke, intra-atrial shunt on echo. Assess for DVT. COMPARISON STUDY: None. FINDINGS: There is normal compressibility, flow, and augmentation within the bilateral lower extremit y deep venous systems. IMPRESSION: No DVT within the right or left lower extremity. ACT 112: Negative or not required by law. Electronically signed by: Mina Velasquez M.D. 08/22/2020 5:41 PM
[2020-08-26 07:46] LABS: Anti Cardiolipin Ab IgG <14 GPL; Anti Cardiolipin Ab IgM 14 MPL; Anti-Thrombin III Activity 121 % normal (80-135); B2 Glycoprotein IgG <9 SGU (<=20); B2 Glycoprotein IgM <9 SMU (<=20)
--- NOTE | 2020-08-27 14:32 | Discharge Summary ---
Date of Service August 22, 2020 Admission HPI Per Admitting Provider The patient is a 49-year-old male with a past medical history including somatic dysfunction of lumbar, thoracic, pelvis and cervical regions, muscle spasm and low back pain who presents to the emergency department with the resolved symptoms that were noted above. He denies any previous occurrence of the symptoms. He denies any recent change in activity pattern or eating or drinking patterns. He was found to be COVID-19 positive earlier in the month, and reports it is quarantine interval was over last week. He did have mild cough and respiratory symptoms with his COVID-19 infection, but has no longer had any symptoms for at least the past week. The patient did test positive for COVID-19 infection in the ED tonight. Principal Diagnosis Acute ischemic stroke, 5mm right frontal cortex Discharge Exam Constitutional WD/WN, vitals as above Eyes PERRL, conjunctivae normal, anicteric sclerae Neck trachea midline, no thyromegaly Respiratory normal respiratory effort, lungs clear to auscultation Cardiovascular RRR, no murmur, no edema Gastrointestinal (Abdomen) normal bowel sounds, soft, nontender, no hepatosplenomegaly Musculoskeletal no cyanosis or clubbing, extremities motor strength 5/5 Skin no rashes, warm and dry Neurologic patellar DTR's 2+ bilat, sensation intact and PERRL, EOMI, accommodation nl, no face palsy, no dysarthria Psychiatric A+Ox3, euthymic affect Lymphatic no cervical or axillary lymphadenopathy Discharge Data Allergies Allergy/AdvReac Type Severity Reaction Status Date / Time No Known Allergies Allergy Verified 08/21/20 22:19 Consultations 08/21/20 23:56 ED Decision to Admit Stat 08/22/20 04:29 Consult Neurology Routine Ordered Studies 08/21/20 22:05 CT angio head w con Urgent CT angio neck with con Urgent CT head/brain wo con Urgent 08/22/20 04:29 MR brain wo con Routine 08/22/20 16:26 US venous doppler [facility] Stat Hospital Course (1) Stroke: Acute stroke in right frontal lobe, 5mm area of stroke, correlates with symptoms of left arm paresis and left facial droop that resolved quickly unclear what the etiology is, could be related to recent COVID infection and known increased risk of clotting with COVID echocardiogram showed a small intra-atrial shunt venous doppler of legs was NEGATIVE for DVT carotid imaging showed no stenosis in the vessels of your neck blood pressure is stable, no diabetes as HbA1c is normal cholesterol was elevated, LDL was 130's, needs to be < 70 now with stroke no atrial fibrillation while here on heart monitor, will get Holter monitor at home plan for secondary stroke prevention: aspirin 81mg daily, started on Lipitor 80mg daily to get LDL < 70 follow up with PCP and with neurology in 6-8 weeks (2) Occipital cortex infarction: Old medial left occipital lobe infarction noted on CT of head. Patient unaware of any visual field symptoms, and has no previous knowledge of this stroke (3) COVID-19: Patient is COVID-19 positive in the emergency department. He reports complete resolution of his respiratory symptoms began earlier in the month. He reports that his 2-week quarantine interval ended last week. The patient does not require active treatment for COVID-19 he does not need to be in isolation/quarantine on discharge certainly possible that COVID contributed to hypercoagulable state making stroke more likely will be on aspirin 81mg daily Total Time Total Time Spent Total Time Spent (In Minutes): 36 Total Time Includes: Examination of the Patient, Discharge Planning, Medication Reconciliation and Communication With Other Providers (Dr. Marcelo) Discharge Plan Discharge Items Patient Disposition: Home - Self-Care Reason For Visit: TIA Discharge Diagnosis: Small acute right frontal stroke Dyslipidemia Condition on Discharge: Good Goals: secondary stroke prevention with aspirin, Lipitor follow up with neurology Activity: Resume your previous activity Driving/Machine Use: No limitations Weightbearing: Full weightbearing Non-emergency contact: Primary Care Provider Call non-emergency contact if: you have any medication questions and your symptoms worsen Follow-up/Referrals: Geno Jones CRNP [Primary Care Provider] - 08/25/20 9:30 am (one week) Thea Garcia PA-C [Physician Employee Adviser] - (6-8 weeks. The Neurology office will call to schedule you with an appointment.) Diet: Heart Healthy Addtl Attending Provider Instructions: Medications: - ASPIRIN: 81mg daily for life - LIPITOR: 80mg daily to lower cholesterol, decrease risk of future stroke Acute stroke in right frontal lobe, 5mm area of stroke, correlates with your symptoms of left arm paresis and left facial droop unclear what the etiology is, could be related to recent COVID infection and known increased risk of clotting with COVID echocardiogram showed a small intra-atrial shunt carotid imaging showed no stenosis in the vessels of your neck blood pressure is stable, no diabetes as HbA1c is normal cholesterol was elevated, LDL was 130's, needs to be < 70 now with stroke no atrial fibrillation while here on heart monitor hypercoagulable work up (labs) are still pending, follow up with PCP for results plan: take aspirin 81mg daily and Lipitor 80mg daily follow with PCP to make sure blood pressure remains stable will arrange for 30 day heart monitor at home to rule out atrial fibrillation follow up with neurology in 6-8 weeks Risk Factors for Stroke: You can reduce your chances of stroke by working with your medical provider to adopt a healthy lifestyle. Some specific ways to lower your chance of stroke are: * If you are a smoker, now is the time to stop smoking cigarettes * If you are diabetic, improve the control of your blood sugars * Avoid excessive amounts of alcohol * Control high blood pressure * Lose weight if you are overweight * Be sure to lead an active lifestyle * Eat a healthy diet low in salt, cholesterol and fat You should know about other risk factors for stroke that you are unable to control. These include: * Age 55 years or older * Male gender * Certain racial groups: , or / * Family History of Stroke, Mini stroke or Heart Attack * Sickle Cell Disease Follow Up: It is important for you to keep your follow up appointments with your medical provider. Who to Call and When: Medical Emergencies: Call 911 immediately if you experience any of the following warning signs and symptoms of Stroke: * Sudden numbness or weakness of the face, arm or leg, especially on one side of the body * Sudden confusion, trouble speaking or understanding * Sudden trouble seeing in one or both eyes * Sudden trouble walking, dizziness, loss of balance or coordination * Sudden severe headache with no cause Do not delay calling 911 if you experience any warning signs or symptoms of a stroke. Delay in seeking medical attention may affect what treatments can be given to you. . Pending Studies at Discharge: Yes Studies:: hypercoagulable studies Stand-Alone Forms: Medications to Prevent Stroke, My [email or web address], Smoking Cessation Medications and DC Order Prescriptions: New atorvastatin 80 mg tablet 80 mg PO QAM 30 Days Qty: 30 RF: 3 aspirin 81 mg Tablet,Delayed Release (Dr/Ec) 81 mg PO QAM 30 Days Qty: 30 RF: 5 Discharge Orders: Discharge Order (Routine); Ordered 08/22/20 Ordered By: Vincent Medeiros/Other Patient Handouts: Tips for Using Less Salt, Low-Fat Cooking Tips Admission Data Admit Date/Time: 08/22/20 02:26 Attending Provider: Vincent Coronado Admit Provider: Devonte Richard Primary Care Provider: Geno Jones Other Providers: Debra Marcelo Other Interventions: Discharge Summary Assessment (RN) Last Done: 08/22/20 17:43 Coding Level of Care Code 91880 OBS Care - Discharge Diagnoses Stroke I63.9 Occipital cortex infarction I63.9 COVID-19 U07.1
[2020-08-27 15:54] LABS: Factor 5 Mutation NEGATIVE
== END 2020-08-22 18:21 | disposition home or self-care (01) ==
LOC: ED 21:45 → 2N 21:45 → SUATTDRO 08-22 02:26 → 2N 08-22 04:02